=== PATIENT | male | born 1995 | race Caucasian/White ===

== ENCOUNTER 2017-04-16 22:18 | Emergency (ER) | payer BC, OTHER ==
[2017-04-16 22:53] VITALS: BP 130/65
[2017-04-16 23:53] LABS: Hematocrit 43.2 % (42.0-52.0); Hemoglobin 14.8 gm/dL (13.5-18.0); Mean Cell Volume 86.1 fl (78-100); Mean Corpuscular Hemoglobin 29.5 pg (27-31); Mean Corpuscular Hgb Conc 34.3 g/dl (32-36); Mean Platelet Volume 10.1 fl (6.0-9.5); Neutrophil # 7.1 K/mm3 (1.3-6.0); Neutrophil % 70.9 % (42-75.0); Platelet Count 252 K/mm3 (150-450); Red Blood Count 5.02 M/mm3 (4.7-6.0); Red Cell Distribution Width 12.1 % (11.5-14.0)
[2017-04-17 00:10] LABS: Cocaine Ur Negative (NEGATIVE); Urine Barbiturate Negative (NEGATIVE); Urine Benzodiazepines Negative (NEGATIVE); Urine Opiates Negative (NEGATIVE); Urine PCP Negative (NEGATIVE); Urine THC Negative (NEGATIVE)
[2017-04-17 00:15] LABS: ALT 18 U/L (19-67); AST 11 U/L (0-48); Albumin * 4.7 gm/dl (3.4-5.0); Alkaline Phosphatase * 66 U/L (50-170); Anion Gap 13.6 mmol/L (6.8-13.8); BUN/Creatinine Ratio 8.4 (9.0-21.6); Blood Urea Nitrogen 9 mg/dL (6-23); Ca. Corrected For Albumin 8.1 mg/dL (8.4-10.2); Carbon Dioxide 27.9 mmol/L (24-32.6); Chloride 102 mmol/L (97-106); Glucose * 89 mg/dL (70-110); Potassium 3.5 mmol/L (3.4-4.6); Salicylate Less than 2.8 mg/dL (2.8-20.0); Sodium 140 mmol/L (132-142); TSH * 2.191 uIU/mL (0.516-4.13); Total Protein 8.2 gm/dL (6.2-8.2)
[2017-04-17 00:22] LABS: Urine Appearance Clear; Urine Bilirubin Negative (NEGATIVE); Urine Blood Negative /ul (NEGATIVE); Urine Color Yellow; Urine Ketone Negative (NEGATIVE)
[2017-04-17 00:23] LABS: Urine Bacteria TRACE; Urine Nitrite Negative (NEGATIVE); Urine Protein Negative (NEGATIVE); Urine RBC None Seen /hpf (0-5); Urine Specific Gravity <=1.005 SP.GR. (1.005-1.030); Urine Urobilinogen Normal (NORMAL); Urine WBC None Seen /hpf (0-5); Urine pH 6.5 pH (5.0-7.0)
--- NOTE | 2017-04-17 02:17 | ERNOTE ---
<Angela Manuel - Last Filed: 04/17/17 05:46> Psychological HPI - General Chief Complaint: Suicide Attempt Source: Reports: patient, police Exam Limitations: Reports: no limitations - Immun/Allergies/Home Medications Allergies/Adverse Reactions: Allergies sulfamethoxazole [From Bactrim] Allergy (Unknown, Verified 04/16/17 22:53) trimethoprim [From Bactrim] Allergy (Unknown, Verified 04/16/17 22:53) Home Medications: HOME MEDICATIONS NK [No Home Medication] 04/16/17 [Last Taken Unknown] - History of Present Illness Narrative: This is a 21-year-old male who had a loaded handgun standing on the rails and attracts for the training to run him over, he had suicidal ideations and depression and he has a plan to kill himself with a loaded gun. Forced and was successful in talking him down and bring him to the emergency room where this examiner when hadn't court committed him after speaking to bridal stylist sales consultant Chandrakant. Time Seen by Provider: 04/16/17 23:08 Review of Systems - Review of Systems Constitutional: Present: no symptoms reported EYE: Present: no symptoms reported ENT: Present: no symptoms reported Respiratory: Present: no symptoms reported Cardiology: Present: no symptoms reported Gastrointestinal/Abdominal: Present: no symptoms reported Genitourinary: Present: no symptoms reported Musculoskeletal: Present: no symptoms reported Skin: Present: no symptoms reported Neurological: Present: no symptoms reported Psych: Present: depressed - Patient's Past Medical History Patient History - Medical: Depression Patient History - Cardiac/Respiratory: Asthma Patient History - Cancer: No Hx of Cancer Patient History - Surgical Procedures: Appendectomy, Other Patient History - Other: None - Social History Living Situations: home Psych History: Hx of Depression Smoking Status: Current every day smoker Alcohol Use: occasionally Drug Use: marijuana - Immunizations Immunizations Up to Date: Yes Hx Pneumococcal Vaccination: No History of Influenza Vaccine: No Physical Exam - Physical Exam General Appearance: Present: wd/wn, alert, no apparent distress Head Exam: Present: normal inspection, no evidence of injury Ears, Nose, Throat: Present: normal ENT inspection, normal pharynx Neck: Present: normal inspection, nontender Respiratory: Present: no respiratory distress, normal breath sounds, no accessory muscle use, chest nontender, lungs clear Cardiovascular/Chest: Present: regular rate, rhythm, no murmur, normal peripheral pulses Gastrointestinal/Abdominal: Present: normal bowel sounds, nontender, nondistended, soft, no organomegaly ED Progress - Results and Orders Patient's Lab Results:: I have reviewed the patient's lab results. - Vital Signs Patient's Vital Signs:: I have reviewed the patient's vital signs. Vital Signs: Vital Signs 04/16/17 04/17/17 22:47 00:25 Temperature 37.1 C Pulse Rate 90 75 Respiratory 15 Rate Blood Pressure 130/65 O2 Sat by Pulse 99 Oximetry - Progress/Reassessment Chief Complaint: Suicide Attempt - Transfer of Care Physician Sign Out: Angela Manuel Receiving Physician: Meghan Vázquez Plan - Plan Plan: This patient is depressed with suicidal ideations attempt and plan serious suicidal intent. His urine is negative for drugs and we will focus our energy on keeping this patient safe from himself and getting him placement to a facility with a higher level care with psychiatric care. Departure Clinical Impression: Anger reaction Depression Qualifiers: Depression Type: major depressive disorder Major depression recurrence: recurrent Active/Remission status: currently active Major depression episode severity: severe Psychotic features: without psychotic features Qualified Code(s ): F33.2 - Major depressive disorder, recurrent severe without psychotic features - Departure Disposition: Home Follow Up Needed Condition: Stable Instructions: Panic Attacks, [id number] Additional Instructions: Follow up with Chaparrita Lozano at [facility], call for the appointment TIME AND DETAILS. Referrals: Nkechi Barrientos ARNP [Primary Care Provider] - <Meghan Vázquez - Last Filed: 04/17/17 20:05> ED Progress - Date and Time Seen: Date and Time: 04/17/17 14:43 Patient was seen at 10:10 AM. Patient was reinterviewed regarding the events of the previous evening. Per his side of the story what his intent was at the timewas picked up by Law enforcement He states that he's been having increasing financial stressors custody briones with his daughter's mom and he used very poor judgment, he had gone down there to fish. But he thinks through poor crisis management he became despondent over the situation and states that his gun was actually in his car that he didn't have any intent to shot himself, his friend called 911. Law enforcement arrived and it sounds like things escalated, telling him he was on private property and that he had no choice but to come to hospital or be arrested because he was on private property. 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 He does know the people that own the property next to [facility] and they allow him to fish there quite often. 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 Patient denies any significant suicidal ideation at this time he feels that he is poor judgment and states that he would lose more than he would gain by Committing suicide first fall he would leave his young daughter to a mom who he states is currently using drugs there is a court custody briones he will have his sole custody at this point, May that order will and it is very concerned about what will happen to his daughter he states that the daughter was tested for mat and chair came back positive is very significant concerns with her mother is able to care for his daughter. He is does work full-time at this time his parents help to care for his daughter he states that he does not do any drugs he's very very where has used marijuana but does not smoke or regular basis. Denies any alcohol use. He states that he was not drinking at the time he states that he does socially drinks sometimes on weekends or elbow anywhere from 1-5 when he goes out. Patient states that he just feels a suppressed over a lot of situational issues here and he thinks that making a safety plan will help him stay focused [facility] he requested and knocked him a evaluation he has been seen there before Chaparrita the approximate counselor did come in to see the patient and is in concordance that he just used poor judgment that he does not at this time have active suicidal ideation he would like to go home and be able to work he has an appointment he contracted to see Chaparrita on April. Patient has has a safety plan I did contact JUDGE Stallings to have him stay the order for emergency hold. Patient is going to be going home at this time and will see Chaparrita nancie per counselor on WednesdayApril 23. Patient is discharged to home his friend will be coming for his right. A safety plan and crisis plan was formulated by the approximate counselor. 04/17/17 15:01 Patient was discharged home at 1502 to follow up as above. 04/17/17 19:53 04/17/17 20:04 - Results and Orders Patient's Lab Results:: I have reviewed the patient's lab results. Results and Orders: Laboratory Tests 04/16/17 04/16/17 04/16/17 23:30 23:30 23:50 WBC 10.0 RBC 5.02 Hgb 14.8 Hct 43.2 MCV 86.1 MCH 29.5 MCHC 34.3 RDW 12.1 Plt Count 252 MPV 10.1 H Immature Gran % (Auto) 0.40 Immature Gran # (Auto) 0.04 H Neutrophils % 70.9 Lymphocytes % 21.1 Monocytes % 7.1 Eosinophils % 0.3 Basophils % 0.2 Nucleated RBC % 0.0 Neutrophils # 7.1 H Lymphocytes # 2.1 Monocytes # 0.7 Eosinophils # 0.0 Absolute Basophils 0.0 Sodium Plasma Sodium Potassium Chloride Carbon Dioxide Anion Gap BUN Creatinine Est GFR (Non-Af Amer) BUN/Creatinine Ratio Random Glucose Calcium Calcium Adj for Albumin Total Bilirubin AST ALT Alkaline Phosphatase Total Protein Albumin TSH Urine Color Yellow Urine Appearance Clear Urine pH 6.5 Ur Specific Blachly <=1.005 Urine Protein Negative Urine Glucose (UA) Negative Urine Ketones Negative Urine Blood Negative Urine Nitrate Negative Urine Bilirubin Negative Urine Urobilinogen Normal Ur Leukocyte Esterase Negative Urine RBC None seen Urine WBC None seen Ur Epithelial Cells None seen Urine Bacteria Trace Salicylates Urine Opiates Screen Negative Acetaminophen Barbiturate Screen Negative Ur Phencyclidine Scrn Negative Urine Amphetamine Negative U Benzodiazepines Scrn Negative Urine Cocaine Screen Negative Urine Marijuana (THC) Negative Ethyl Alcohol 04/16/17 23:50 WBC RBC Hgb Hct MCV MCH MCHC RDW Plt Count MPV Immature Gran % (Auto) Immature Gran # (Auto) Neutrophils % Lymphocytes % Monocytes % Eosinophils % Basophils % Nucleated RBC % Neutrophils # Lymphocytes # Monocytes # Eosinophils # Absolute Basophils Sodium 140 Plasma Sodium 140 Potassium 3.5 Chloride 102 Carbon Dioxide 27.9 Anion Gap 13.6 BUN 9 Creatinine 1.07 Est GFR (Non-Af Amer) 95 BUN/Creatinine Ratio 8.4 L Random Glucose 89 Calcium 9.0 Calcium Adj for Albumin 8.1 L Total Bilirubin 1.0 AST 11 ALT 18 L Alkaline Phosphatase 66 Total Protein 8.2 Albumin 4.7 TSH 2.191 Urine Color Urine Appearance Urine pH Ur Specific Blachly Urine Protein Urine Glucose (UA) Urine Ketones Urine Blood Urine Nitrate Urine Bilirubin Urine Urobilinogen Ur Leukocyte Esterase Urine RBC Urine WBC Ur Epithelial Cells Urine Bacteria Salicylates Less than 2.8 L Urine Opiates Screen Acetaminophen Less than 0.2 L Barbiturate Screen Ur Phencyclidine Scrn Urine Amphetamine U Benzodiazepines Scrn Urine Cocaine Screen Urine Marijuana (THC) Ethyl Alcohol Less than 3.0 - Progress/Reassessment Progress:: Improved
== END 2017-04-17 15:01 | disposition home or self-care (01) ==
LOC: ER 22:18
DX: R45.4 Irritability and anger (principal); F32.89 Other specified depressive episodes; F17.200 Nicotine dependence, unspecified, uncomplicated
CPT/HCPCS: 36415; 80053; 80307; 81001; 84443; 85025; 93005; 99284; G0480; G0481